=== PATIENT | male | born 1970 | race Caucasian/White ===

== ENCOUNTER 2017-07-14 18:46 | Emergency (ER) | payer BC, OTHER ==
[2017-07-14 19:56] VITALS: BP 167/99
--- NOTE | 2017-07-14 20:20 | UC ---
Dizzy HPI HPI Summary: C/O lightheaded episodes over the last 1 1/2 weeks which are becoming less frequent. Nausea has been persistent. Headache. Aching headache without photophobia or phonophobia. - History Of Current Complaint Chief Complaint: UCCardiac Stated Complaint: NAUSEA/LIGHTHEADED Time Seen by Provider: 07/14/17 20:12 Hx Obtained From: Patient Onset/Duration: Sudden Onset, Lasting Weeks - 1 1/2, Still Present Timing: Hours - 2 Severity Initially: Moderate Severity Currently: Mild Pain Intensity: 0 Aggravating Factor(s): Headache Alleviating Factor(s): Rest Associated Signs And Symptoms: Positive: Nausea. Negative: Vomiting, Diaphoresis, Chest Pain, SOB, Palpitations, Unsteady Gait, Visual Changes, Decreased Oral Intake, Change In Medication, Change In Diet, OTC Medications - Risk Factors Cardiac Risk Factors: Hypertension - Allergies/Home Medications Allergies/Adverse Reactions: Allergies Allergy/AdvReac Type Severity Reaction Status Date / Time No Known Allergies Allergy Verified 07/14/17 19:56 Home Medications: Home Medications Telmisartan 40 mg PO DAILY 07/14/17 [History Confirmed 07/14/17] PMH/Surg Hx/FS Hx/Imm Hx Cardiovascular History: Hypertension - Surgical History Surgical History: Yes Surgery Procedure, Year, and Place: REPAIR OF RUPTURED EARDRUM - Family History Known Family History: Positive: Hypertension Negative: Cardiac Disease - Social History Occupation: Employed Full-time Lives: With Family Alcohol Use: Rare Substance Use Type: None Smoking Status (MU): Never Smoked Tobacco Have You Smoked in the Last Year: No - Immunization History Most Recent Influenza Vaccination: NOT IN 2016 Review of Systems ENT: Nasal Discharge, Sinus Congestion Gastrointestinal: Nausea Neurological: Headache Is Patient Immunocompromised?: No All Other Systems Reviewed And Are Negative: Yes Physical Exam Triage Information Reviewed: Yes Appearance: Well-Appearing, No Pain Distress, Well-Nourished Vital Signs: Initial Vital Signs Temp 99.2 F 07/14/17 19:49 Pulse 62 07/14/17 19:49 Resp 14 07/14/17 19:49 BP 167/99 07/14/17 19:49 Pulse Ox 98 07/14/17 19:49 Vital Signs Reviewed: Yes Eyes: Positive: Conjunctiva Clear ENT: Positive: Pharynx normal, Nasal congestion, TMs normal Neck exam: Normal Respiratory Exam: Normal Cardiovascular Exam: Normal Abdominal Exam: Normal Bowel Sounds: Positive: Present Musculoskeletal Exam: Normal Neurological Exam: Normal Psychological Exam: Normal Skin Exam: Normal Dizzy Course/Dx - Differential Dx/Diagnosis Differential Diagnosis/HQI/PQRI: Anxiety, Hyperventilation, Transient Ischemic Attack, Vasovagal Reaction Provider Diagnoses: Lightheadedness. Hypertension. Allergic rhinitis Discharge - Sign-Out/Discharge Documenting (check all that apply): Discharge - Discharge Plan Condition: Stable Disposition: HOME Patient Education Materials: Lightheadedness (ED), Chronic Hypertension (ED), Allergic Rhinitis (ED) Referrals: No Primary Care Phys,NOPCP [Primary Care Provider] - 2 Weeks (Recheck blood pressure and calibrate new home blood pressure machine.) Additional Instructions: NEILMED SINUS RINSE: CHECK OUT AT [facility] Saline nasal wash helps with mucous, allergies and congestion. It can be used up to twice a day or only as needed. Use lukewarm tap water. It does not have to be sterilized or distilled water. Do 1/3 on each side and snort out of both nostrils. Repeat the process with 1/6 of the bottle on each side with snorting in between to finish the solution in the bottle - Billing Disposition and Condition Condition: STABLE Disposition: HOME
== END 2017-07-14 20:47 | disposition home or self-care (01) ==
LOC: UCCORT 18:46
DX: R42 Dizziness and giddiness (principal); I10 Essential (primary) hypertension; J30.9 Allergic rhinitis, unspecified
CPT/HCPCS: 93005; 99211; G0463